=== PATIENT | male | born 1965 | race Caucasian/White ===

== ENCOUNTER 2023-11-13 15:14 | Outpatient (CLI) | payer BC, SELFPAY ==
--- NOTE | ~2023-11-13 | XR_ITS ---
EXAMINATION: XR knee LT 3V, XR knee RT 3V DATE: 11/13/2023 15:38 INDICATION: Bilateral knee pain TECHNIQUE: 1. Standing AP, lateral and sunrise views of the right knee were obtained 2. Standing AP, lateral and sunrise views of the left knee were obtained COMPARISON: None. FINDINGS: Alignment is normal at both knees. No fracture. Joint spaces appear normal at both knees with no ero sions or osteophytosis. Small sclerotic bone island at the left lateral tibial plateau and right late ral femoral condyle. Soft tissues are unremarkable. No joint effusions. IMPRESSION: 1. Negative bilateral knee radiographs. Reviewed, dictated and finalized at location A. [facility] IMPRESSION: 1. Negative bilateral knee radiographs.
== END 2023-11-13 15:15 ==
LOC: GOSHIMG 15:16
PROVIDERS: PCP Physician Assistant; Visit Provider Physician Assistant
DX: M25.561 Pain in right knee (principal)
CPT/HCPCS: 73562

== ENCOUNTER 2024-01-13 00:43 | Day surgery (SDC) | payer BC, SELFPAY ==
[2023-12-28 14:34] VITALS: BMI 23.8
[2024-01-13 08:20] VITALS: BP 116/77; PULSE 66; RESP 19; TEMP 36.2; O2SAT 100
[2024-01-13] MEDS: LACTATED RINGERS 1,000 ML 150 ML IV CONT (08:38)
--- NOTE | 2024-01-13 08:51 | P.PNAN_ITS ---
Anes - Initial Pre Proc Eval Procedure: Operation Date: 01/13/24 09:30 Proposed Procedures p Esophagogastroduodenoscopy & Colonoscopy - Wilbert Gresham MD Date/Time: 01/13/24 08:51 Surgeon: Wilbert Gresham MD Pre Op Diagnosis: GERD, Personal Hx. colon polyps Patient Data Age: 58 Gender: M Height: 1.85 m Weight: 78.4 kg Last Vital Signs Temp 97.2 F L 01/13/24 08:20 Pulse 66 01/13/24 08:20 Resp 19 01/13/24 08:20 BP 116/77 01/13/24 08:20 Pulse Ox 100 01/13/24 08:20 O2 Del Method Room Air 01/13/24 08:20 Allergies Allergy/AdvReac Type Severity Reaction Status Date / Time No Known Allergies Allergy Verified 01/13/24 08:19 Home Medications Medication Instructions Recorded Confirmed Type omeprazole 40 mg capsule,delayed 40 mg PO DAILY 12/28/23 12/28/23 History release Patient hx anesthesia problems: none Family hx anesthesia problems: none Results Review: All pre-operative results and documents have been reviewed as part of the pre- operative evaluation. PMF Social History Social History Smoking status: Never smoker Substance use type: does not use Living arrangements: other Additional living arrangements comments: with sp Anes - Eval Final PreProcedure Day of Procedure 01/13/24 08:51 Patient weight: normal Heart: regular rate and rhythm Lungs: clear to auscultation Airway: Mallampati scale Neurological: alert and oriented Last oral intake: >/= 8 hours ASA classification: III Emergent: no Anesthetic plan: proceed Anesthesia type and monitoring: general GIVS and standard monitoring Results Review: All pre-operative results and documents have been reviewed as part of the pre- operative evaluation. Informed Consent: The patient's anesthetic plan and its attendant risks and benefits were discussed with the patient/family/POA. Questions were solicited and answers provided to the satisfaction of the patient/family/POA.
--- NOTE | 2024-01-13 09:20 | PM.HPGS ---
History of Present Illness History of Present Illness Consent: Risks, benefits, and alternatives have been discussed and questions answered. Patient agrees to proceed with procedure. Chief complaint: GERD, Personal Hx. colon polyps Narrative: Rudy Gerardo is a 58 year old male with colon polyp 5 years ago and gerd with hiatal hernia, EGD about 10 years ago, he has been using omeprazole for almost 20 years and he is doing ok as long as he is using his med. Review of Systems Review of Systems: All systems reviewed & are unremarkable except as noted in HPI and below PMFSH Past Medical History Medical History (Updated 01/13/24 @ 09:21 by Wilbert Gresham MD) Adenomatous colon polyp GERD (gastroesophageal reflux disease) Social History Social History Smoking status: Never smoker Substance use type: does not use Living arrangements: other Additional living arrangements comments: with sp Meds Home Medications and Allergies Home Medications Medication Instructions Recorded Confirmed Type omeprazole 40 mg capsule,delayed 40 mg PO DAILY 12/28/23 12/28/23 History release Allergies Allergy/AdvReac Type Severity Reaction Status Date / Time No Known Allergies Allergy Verified 01/13/24 08:19 Vital Signs Vital Signs - 24 hr 01/13/24 08:20 Temperature 97.2 F L Pulse Rate 66 Respiratory Rate 19 Blood Pressure 116/77 Pulse Oximetry 100 Oxygen Delivery Room Air Exam Const: General: comfortable and no acute distress HENMT: Face/Nose/Sinus: Normal nares present Eyes: General: appearance normal, both eyes and all related structures Neck: Neck: no JVD Resp: Auscultation: clear to auscultation bilaterally Cardio: Rate: regular rate Rhythm: regular rhythm GI: Inspection: non-distended GI Palp: Yes Soft to palpation Skin: General skin exam: normal color Neuro: General: gait normal Speech: normal speech Extrem: General: normal to inspection Psych: Mental Status: mental status grossly normal Assessment and Plan Assessment and plan (1) Adenomatous colon polyp: Code(s): D12.6 - Benign neoplasm of colon, unspecified Status: Acute Assessment and Plan: colonoscopy (2) GERD (gastroesophageal reflux disease): Code(s): K21.9 - Gastro-esophageal reflux disease without esophagitis Status: Acute Assessment and Plan: egd
--- NOTE | 2024-01-13 09:43 | SUR.OPER ---
EGD START 926, END 929 COLONOSCOPY START 934, END 942
[2024-01-13 09:47] VITALS: BP 117/66; PULSE 81; RESP 24; O2SAT 98
[2024-01-13 09:57] VITALS: BP 128/61; PULSE 79; RESP 20; O2SAT 99
== END 2024-01-13 10:15 | disposition home or self-care (01) ==
PROVIDERS: PCP Physician Assistant; Visit Provider Internal Medicine Gastroenterology
PROC: 0DJ08ZZ Inspection of Upper Intestinal Tract, Via Natural or Artificial Opening Endoscopic (ICD-10-PCS; CPT 43235; principal; 2024-01-13 09:30)
DX: Z12.11 Encounter for screening for malignant neoplasm of colon (principal); K64.8 Other hemorrhoids; Z86.010 Personal history of colon polyps; K21.9 Gastro-esophageal reflux disease without esophagitis
CPT/HCPCS: 45378; 43239; 88305; J2704; J7120